=== PATIENT | male | born 1940 | race Caucasian/White ===

== ENCOUNTER 2025-05-04 11:30 | Outpatient (AMB) | payer OTHER, SELFPAY ==
--- OUTSIDE RECORDS SUMMARY | 2025-05-03 14:00 | XMS_ITS | Encounter Summary ---
Author Organization [facility] Address [address] [place] [address] Care Team Providers Care Field Representative/Health Education Name Role Phone Aida Josh HOLLAND Primary Care Provider Reason for Visit * Reason Comments OMT Encounter Details Date Type Department Care Team (Late st Contact Info) Description 05/03/2025 2:00 PM EDT Office Visit Internal Medicine - [place] [address] [place] [address] Josh Parra DO [address] [place] [address] Primary hypertension (Primary Dx); Acquired hypothyroidism; Mixed hyperlipidemia; Low back pain with right-sided sciatica, unspecified back pain laterality, unspecified chronicity; Head region somatic dysfunction; Cervical (neck) region somatic dysfunction; Thoracic region somatic dysfunction; Lumbar region somatic dysfunction; Sacral region somatic dysfunction; Pelvic region somatic dysfunction; Lower limb region somatic dysfunction; Upper limb region somatic dysfunction Social History Tobacco Use Types Packs/Day Years Used Date Smoking Tobacco: Former Cigarettes Q uit: 10/12/1971 Smokeless Tobacco: Never Alcohol Use Standard Drinks/Week Comments Yes 2 (1 standard drink = 0.6 oz pur e alcohol) Sex and Gender Information Value Date Recorded Sex Assigned at Not on file Legal Sex Male 2:11 PM EST Gender Identity Not on file Sexual Orientation Not on file documented as of this encounter Last Filed Vital Signs Vital Sign Reading Time Taken Comments Blood Pressure 122/65 05/03/2025 4:54 PM EDT Pulse 86 05/03/2025 2:02 PM EDT Temperature 37.1 C (98.8 F) 05/03/2025 2:02 PM EDT Respiratory Rate - - Oxygen Saturation 97% 05/03/2025 2:02 PM EDT Inhaled Oxygen Concentration - - Weight 78.3 kg (172 lb 9.6 oz) 05/03/2025 2:02 P M EDT Height 170.2 cm (5' 7 ) 05/03/2025 2:02 PM EDT Body Mass Index 27.03 05/03/2025 2:02 PM EDT documented in this encounter Progress Notes * Josh Parra, - 05/03/2025 2:00 PM EDTAssociated Order(s): Osteopathic Manipulative Treatment Post-Procedure Diagnose(s): Cervical (neck) region somatic dysfunction; Lower limb region somatic dysfunction; Lumbar region somatic dysfunction; Sacral region somatic dysfunction; Head region somatic dysfunction; Pelvic region somatic dysfunction; Thoracic region somatic dysfunction; Upper limb region somatic dysfunction History of present Illness: Mikal Chavez is 85 y.o. male who presented today for Chief Complaint Patient presents with OMT 84-year-old male with history of frontal temporal dementia, severe aortic stenosis, essential hypertension, hyperlipidemia, with recent TAVR and pacemaker procedure completed chronic heart failure with preserved ejection fraction, hyponatremia presents to the office for follow-up. Of note patient'swife is present. Patient's notes patient tolerated procedure well. Of note patient has been having reoccurrence of low back pain and would like to be seen by chiropractor. Of note patient had TENS unit placed previously for chronic back pain by chiropractor. Pt notes he has been having bilateral hip and back pain and would like to continue with osteopathic interventions. Review of Systems: Review of Systems Constitutional: Negative for fatigue and fever. HENT: Negative for postnasal drip and sinus pressure. Respiratory: Negative for cough and shortness of breath. Cardiovascular: Negative for chest pain. Gastrointestinal: Negative for abdominal pain, constipation, diarrhea, nausea and vomiting. Genitourinary: Negative for dysuria. Musculoskeletal: Positive for arthralgias, back pain and myalgias. Neurological: Negative for dizziness. Psychiatric/Behavioral: The patient is not nervous/anxious. Physical Exam: Physical Exam Constitutional: General: He is not in acute distress. Appearance: Normal appearance. HENT: Head: Normocephalic and atraumatic. Cardiovascular: Rate and Rhythm: Normal rate. Rhythm irregular. Pulses: Normal pulses. Heart sounds: Murmur heard. Pulmonary: Effort: Pulmonary effort is normal. No respiratory distress. Breath sounds: Normal breath sounds. Musculoskeletal: General: Normal range of motion. Cervical back: Normal range of motion and neck supple. Right lower leg: No edema. Lymphadenopathy: Cervical: No cervical adenopathy. Neurological: Mental Status: He is alert. Allergies: No Known Allergies Vitals: 05/03/25 1402 05/03/25 1654 BP: (!) 167/68 122/65 BP Location: Right arm Patient Position: Sitting BP Cuff Size: Adult Pulse: 86 Temp: 37.1 ??C (98.8 ??F) TempSrc: Temporal SpO2: 97% Weight: 78.3 kg (172 lb 9.6 oz) Height: 1.702 m (67 ) Past Medical History: Past Medical History: Diagnosis Date Acquired hypothyroidism 11/07/2017 DX:Acquired hypothyroidism Acute bronchitis due to other specified organisms 11/19/2016 DX:Acute bronchitis due to other specified organisms Aortic valve disorder 11/07/2017 DX:Aortic valve disorder Bilateral carotid artery disease (CMS/HCC V24) 11/07/2017 DX:Bilateral carotid artery disease (HCC) Coronary arteriosclerosis DX:Coronary arteriosclerosis Coronary artery disease involving [place] coronary artery of [place] heart without angina pectoris DX:Coronary artery disease involving [place] coronary artery of [place] heart without angina pectoris Disease of thyroid gland DX:Disease of thyroid gland High cholesterol DX:High cholesterol Hx of CABG 11/07/2017 DX:Hx of CABG Hypertension DX:Hypertension Hypertensive heart disease without heart failure 11/07/2017 DX:Hypertensive heart disease without heart failure Mixed hyperlipidemia 11/07/2017 DX:Mixed hyperlipidemia Non-rheumatic mitral regurgitation 11/07/2017 DX:Non-rheumatic mitral regurgitation Nonrheumatic aortic valve stenosis 11/07/2017 DX:Nonrheumatic aortic valve stenosis Obesity (BMI 30-39.9) 11/07/2017 DX:Obesity (BMI 30-39.9) RBBB 11/07/2017 DX:RBBB Syncope and collapse 07/05/2018 DX:Syncope and collapse Visual impairment DX:Visual impairment;COMMENT:wears glasses Past Surgical History: Past Surgical History: Procedure Laterality Date APPENDECTOMY PROCEDURE:APPENDECTOMY COLONOSCOPY PROCEDURE:COLONOSCOPY CORONARY ARTERY BYPASS GRAFT PROCEDURE:CORONARY ARTERY BYPASS GRAFT HERNIA REPAIR PROCEDURE:HERNIA REPAIR THROMBOENDARTERECTOMY Left 09/14/2020 PROCEDURE:THROMBOENDARTERECTOMY;COMMENT:Procedure: LEFT CAROTID ENDARTERECTOMY; Surgeon: Macho Calero MD; Location: [facility]; Service: Vascular; Laterality: Left; TONSILLECTOMY PROCEDURE:TONSILLECTOMY UPPER GASTROINTESTINAL ENDOSCOPY PROCEDURE:UPPER GASTROINTESTINAL ENDOSCOPY Social History: Social History Tobacco Use Smoking Status Former Current packs/day: 0.00 Types: Cigarettes Quit date: 10/12/1971 Years since quittin.5 Smokeless Tobacco Never Family History: Family History Problem Relation Name Age of Onset COPD Mother Coronary artery disease Father Hyperlipidemia Father Heart disease Father Diabetes Neg Hx Cancer Neg Hx Home Medications: Current Outpatient Medications Medication Sig Dispense Refill amoxicillin (AMOXIL) 500 mg capsule Take 1 capsule (500 mg total) by mouth. ascorbic acid (VITAMIN C) 1,000 mg tablet Take 1 tablet (1,000 mg total) by mouth every evening. aspirin 81 mg EC tablet Take 1 tablet (81 mg total) by mouth every evening. atorvastatin (LIPITOR) 40 mg tablet TAKE 1 TABLET(40 MG) BY MOUTH DAILY calcium carbonate (CALTRATE 600 ORAL) Take 1 tablet by mouth 2 (two) times a day. Per pt. gabapentin (NEURONTIN) 300 mg capsule Take 2 capsules (600 mg total) by mouth 3 (three) times a day. 540 each 1 irbesartan-hydroCHLOROthiazide (AVALIDE) 150-12.5 mg per tablet TAKE 1 TABLET BY MOUTH DAILY levothyroxine (SYNTHROID, LEVOTHROID) 75 mcg tablet Take 1 tablet (75 mcg total) by mouth 1 (one) time each day before breakfast. TAKE 1 TABLET(75 MCG) BY MOUTH DAILY 90 each 1 lidocaine (LIDODERM) 5 % patch Apply 1 patch topically 1 (one) time each day. memantine (NAMENDA) 10 mg tablet Take 1 tablet (10 mg total) by mouth 2 (two) times a day. multivit-min/ferrous fumarate (MULTI VITAMIN ORAL) Take 1 tablet by mouth daily. nebivoloL (BYSTOLIC) 10 mg tablet Take 1 tablet (10 mg total) by mouth 1 (one) time each day. pregabalin (LYRICA) 50 mg capsule Take 1 capsule (50 mg total) by mouth 2 (two) times a day. tiZANidine (ZANAFLEX) 4 mg tablet Take 1 tablet (4 mg total) by mouth 3 (three) times a day if needed for muscle spasms for up to 90 doses. 90 tablet 0 No current facility-administered medications for this visit. Results: No results found for: CBCDIF , THYROID , QC , PSA , BMP , PT , INR , HGBA1C Assessment and Plan: Problem List Items Addressed This Visit Acquired hypothyroidism Hypertension - Primary Other Visit Diagnoses Mixed hyperlipidemia Low back pain with right-sided sciatica, unspecified back pain laterality, unspecified chronicity Head region somatic dysfunction Cervical (neck) region somatic dysfunction Thoracic region somatic dysfunction Lumbar region somatic dysfunction Sacral region somatic dysfunction Pelvic region somatic dysfunction Lower limb region somatic dysfunction Upper limb region somatic dysfunction MDM Number of Diagnoses or Management Options Diagnosis management comments: Essential hypertension-established. Patient goal BP less than 140/90. Patient continue blood pressure medications including irbesartan/hydrochlorothiazide/Nebivolol. Hyperlipidemia-established. Patient continue atorvastatin 40 mg daily. Acquired hypothyroidism-established. Patient continue levothyroxine 75 mcg daily. Chronic low back pain with right-sided sciatica-established. Patient gerard a good candidate for osteopathic manipulation. Patient has also been tolerating Lyrica/tizanidine. Will continue patient on medications appropriately. Will utilize technique such as muscle energy, counterstrain, myofascial release, osteopathic percussion therapy, BLT techniques to treat patient somatic dysfunctions. Procedure: OMT Patient is a good candidate for OMT. Discussed goals of treatment. Patient expressed understanding. Consent was obtained from the patient for OMT evaluation and treatment. Based on today's physical exam, OMT was administered to the regions of somatic dysfunction listed in the osteopathic structural exam. OMT may or may not include techniques including MFR, BLT, FPR, CS, ME, lymphatic drainage, fascial distortion, fascial strains and gentle articulation. The techniques chosen for the patient were based on the indications noted in OSE and also adjusted to patient's tolerance. The regions treated were chosen based on the chief complaint and/or associated health conditions. Both postural and neurologic factors that could cause the symptoms were considered in the selection of these regions. Patient tolerated the treatment well without complication. Osteopathic Manipulative Treatment Date/Time: 05/03/2025 5:02 PM Performed by: Josh Parra DO Authorized by: Josh Parra DO Informed Consent: Site: Neck, Back Laterality: Bilateral Relevant images/test results available and reviewed: yes Health status cleared: Yes Procedure/treatment, purpose, treatment alternatives, risks/potential complications and benefits explained: yes Patient questions answered: yes Patient agrees, verbalizes understanding, and wants to proceed: yes Consent given by: Patient Informed consent discussion completed by Physician/KYLEIGH with patient: Verbal Pre-procedure timeout performed: yes Procedure: Based on patient's verbal history and today's physical exam findings, osteopathic manipulative treatment is indicated Technique(s) used: balanced ligamentous tension, balanced membranous tension, muscle energy technique, myofascial release technique and soft tissue technique Regions Accessed: head, cervical, thoracic, lumbar, sacral, pelvic, lower extremities and upper extremities Head findings: Suboccipital muscle hypertonicity Cervical findings: C2 ERrSr, C4 ERrSr, C5 ERlSl, C7 FRrSr Thoracic findings: T1 FRrSr, T3 FRlSl, T4 FRlSL, T7 FRrSr, Paraspinal muscle hypertonicity Lumbar findings: L2 ERrSr, L4 ERlSl, Paraspinal muscle hypertonicity Sacral findings: L/L Forward sacral torsion Pelvic findings: Left posteriorly rotatated innominate Lower extremities findings: Right piriformis tenderpoint Upper extremities findings: Upper trapezius and supraspinatus tenderpoint Total number of regions: 8 Post-procedure: Procedure was tolerated well and no complication were noted Patient instructed to: continue current medications and treat increased pain with ice and/or heat intermittently Patient is to return: For follow up Return in: 1 month Stretches [employer] and provided education on various stretches. Recommended and educated pts on stretching neck, back and other associated hypertonic muscles that are exacerbating pt's MSK symptoms. Advised ptsto stretch after warm shower or heat pack treatment to affected areas to prevent further muscle injury. Recommend pt to stretch 3x a day for 10-15 seconds or as pt tolerates. Return to office in: F/U in 1M OMT treatment of low back pain Josh Parra DO [facility] This document was created using a voice-recognition software. While I try to document as accuratelyas possible, however there maybe occasional typos and errors that maybe present in the note due to limitations of the voice- recognition software. I have applied the code G2211 to this patient???s visit as the primary care provider dealing with the following conditions but not limited to (HTN, HLD, Hypothyroidism, Chronic back pain, Frontal Temporal dementia) leading to the extensive work up, and management associated with the medical care ofthis patient. This patient???s serious and complex medical conditions also required additional comprehensive management/workup and coordination of care through my office. I have also reviewed all necessary information that pertains to the management of this patient including, but not limited to imaging, laboratory work, specialist's recommendation/treatment plan with considerations of patient's chronic conditions and current medications for final approval. documented in this encounter Plan of Treatment Upcoming Encounters Date Type Department Care Team (Late st Contact Info) Description 05/17/2025 1:30 PM EDT Office Visit Internal Medicine - [place] [address] [place] [address] Josh Parra DO [address] [place] [address] 06/21/2025 2:00 PM EDT Office Visit Internal Medicine - [place] [address] [place] [address] Josh Parra DO [address] [place] [address] 08/21/2025 2:30 PM EST Office Visit Internal Medicine - [place] [address] [place] [address] Josh Parra DO [address] [place] [address] documented as of this encounter Procedures Procedure Name Priority Date/Time Associated Diagnosis Comments [place] OMT 7-8 BODY REGIONS Routine 05/03/2025 5:02 PM EDT Head region somatic dysfunction Cervical (neck) region somatic dysfunction Thoracic region somatic dysfunction Lumbar region somatic dysfunction Sacral region somatic dysfunction Pelvic region somatic dysfunction Lower limb region somatic dysfunction Upper limb region somatic dysfunction documented in this encounter Results * WI OMT 7-8 BODY REGIONS (05/03/2025 5:02 PM EDT) Josh Miranda DO - 05/03/2025 5:02 PM EDT Josh Parra DO 05/03/2025 5:05 PM Osteopathic Manipulative Treatment Date/Time: 05/03/2025 5:02 PM Performed by: Josh Parra DO Authorized by: Josh Parra DO Informed Consent: Site: Neck, Back Laterality: Bilateral Relevant images/test results available and reviewed: yes Health status cleared: Yes Procedure/treatment, purpose, treatment alternatives, risks/potential complications and benefits explained: yes Patient questions answered: yes Patient agrees, verbalizes understanding, and wants to proceed: yes Consent given by: Patient Informed consent discussion completed by Physician/KYLEIGH with patient: Verbal Pre-procedure timeout performed: yes Procedure: Based on patient's verbal history and today's physical exam findings, osteopathic manipulative treatment is indicated Technique(s) used: balanced ligamentous tension, balanced membranous tension, muscle energy technique, myofascial release technique and soft tissue technique Regions Accessed: head, cervical, thoracic, lumbar, sacral, pelvic, lower extremities and upper extremities Head findings: Suboccipital muscle hypertonicity Cervical findings: C2 ERrSr, C4 ERrSr, C5 ERlSl, C7 FRrSr Thoracic findings: T1 FRrSr, T3 FRlSl, T4 FRlSL, T7 FRrSr, Paraspinal muscle hypertonicity Lumbar findings: L2 ERrSr, L4 ERlSl, Paraspinal muscle hypertonicity Sacral findings: L/L Forward sacral torsion Pelvic findings: Left posteriorly rotatated innominate Lower extremities findings: Right piriformis tenderpoint Upper extremities findings: Upper trapezius and supraspinatus tenderpoint Total number of regions: 8 Post-procedure: Procedure was tolerated well and no complication were noted Patient instructed to: continue current medications and treat increased pain with ice and/or heat intermittently Patient is to return: For follow up Return in: 1 month Josh Parra DO IN CLINIC/BEDSIDE ORDERABLES Fin al Result documented in this encounter Visit Diagnoses Diagnosis Primary hypertension- Primary Unspecified essential hypertension Acquired hypothyroidism Unspecified hypothyroidism Mixed hyperlipidemia Low back pain with right-sided sciatica, unspecified back pain laterality, unspecified chronicity Head region somatic dysfunction Nonallopathic lesion of head region, not elsewhere classified Cervical (neck) region somatic dysfunction Nonallopathic lesion of cervical region, not elsewhere classified Thoracic region somatic dysfunction Nonallopathic lesion of thoracic region, not elsewhere classified Lumbar region somatic dysfunction Nonallopathic lesion of lumbar region, not elsewhere classified Sacral region somatic dysfunction Nonallopathic lesion of sacral region, not elsewhere classified Pelvic region somatic dysfunction Nonallopathic lesion of pelvic region, not elsewhere classified Lower limb region somatic dysfunction Nonallopathic lesion of lower extremities, not elsewhere classified Upper limb region somatic dysfunction Nonallopathic lesion of upper extremities, not elsewhere classified documented in this encounter Additional Health Concerns Assessment Noted Time PHQ-9 Depression Total Score: 0 03/07/20 25 2:43 PM EDT documented as of this encounter Care Teams Field Representative/Health Education Relationship Specialty Start Date End Date Josh Parra DO [address] [place] [id number] PCP - General Family Medicine 07/31/22 documented as of this encounter
--- NOTE | 2025-05-04 12:01 | A.OFFVIS_ITS ---
Intake Visit Reasons: 3 mnts ftd Accompanied by: Spouse Allergies No Known Allergies Allergy (Verified 05/04/25 12:07) Medication List - Last Reconciled 05/04/25 by Ysabel Berrios CNP amlodipine 2.5 mg PO DAILY donepezil 5 mg PO BEDTIME furosemide 20 mg PO DAILY gabapentin 300 mg PO BID irbesartan-hydrochlorothiazide 300-12.5 mg 1 tab PO DAILY levothyroxine 75 mcg PO DAILY memantine 5 mg PO BID nebivolol 5 mg PO DAILY sertraline 25 mg PO DAILY HPI Comments Details: He was doing okay. Memory stable overall, but has trouble with speech and language. He says he feels good with medications. No medication side effects. Mood better with sertraline. He still gets stuck for words, which can make him frustrated at times. Sleep was okay. He was having some intermittent tremor, usually when eating dinner. No functional impairment. Working with chiropractor for sciatica. Walking with cane, no falls. He had valve replacement and pacemaker in 09/2024. He has been noted to have word finding difficulties, speech is altered and his fluency has diminished, he hesitates for words. He has only minor memory issues, misplacing things like his keys and phones but otherwise functions well and drives fine without getting lost. He has become slower to respond; sometimes it takes and 2 attempts to get him to do something. He gets emotional and cries frequently and easily. He feels stressed and anxious with crowds and has become more impatient and explodes more easily, but comes down fairly quickly and apologizes. For a few years he has had a minor tremor in his hands intermittently. His daughter feels that he doesn't smile as much. He has also had some right-sided sciatica pain which was relieved with an injection, but is left with some pain in the right knee area. He has had 3 bouts of Covid infection, the last one was in June 2023. He has a history of coronary artery disease and had two-vessel bypass in 1999 and a right carotid endarterectomy in 2019. [facility] Medical History (Updated 05/04/25 @ 12:05 by Ysabel Berrios CNP) Frontotemporal lobar degeneration Sciatica Review of Systems Const Denies chills, Denies daytime sleepiness, Denies difficulty sleeping, Denies fatigue, Denies fever(s), Denies frequent falls, Denies headache(s), Denies increased appetite, Denies poor appetite, Denies snoring, Denies weakness, Denies weight gain and Denies weight loss Eyes Denies loss of vision ENT Denies vertigo, Denies dizziness, Denies headache(s) and Denies neck pain Card Denies chest pain at rest, Denies chest pain with activity, Denies syncope, Denies leg edema, Denies palpitations, Denies dyspnea and Denies dyspnea on exertion Resp Denies cough, Denies dyspnea, Denies dyspnea on exertion and Denies snoring GI Denies abdominal pain, Denies constipation, Denies heartburn, Denies diarrhea and Denies nausea Reports urinary frequency, Denies urinary incontinence and Denies urinary urgency Musc Reports abnormal gait, Denies back pain, Denies myalgias, Denies arthralgias, Denies neck pain, Denies numbness and Denies tingling Neuro Reports abnormal gait, Denies vertigo, Denies dizziness, Denies syncope, Denies frequent falls, Denies headache(s), Denies lack of coordination, Denies loss of vision, Reports memory loss, Denies numbness, Denies Other visual disturbances, Denies restless legs, Denies seizure-like activity, Denies tingling, Denies paresthesias, Reports tremor(s) and Denies weakness Psych Reports anxiety, Reports depression, Denies auditory hallucinations, Reports memory loss and Denies visual hallucinations Endo Denies fatigue and Denies palpitations Physical Exam Const Other: General Appearance:? normal, in no acute distress. Heart:? S1, S2 normal, no murmurs. Lungs:? clear anteriorly and posteriorly. Musculoskeletal:? normal. Extremities:? no edema. Psych:? alert, cooperative with exam. Neuro Other: Abnormal Neurological Findings:?Walking with cane. Decreased speech fluency. Mental Status: alert Cranial Nerves: Pupils are equal, round, and reactive to light. External ocular muscles are intact. Visual dejesus are full, no ptosis. Face is symmetrical, no facial weakness or droop. Facial sensations are normal. Tongue protrudes in midline. Palate elevates symmetrically. Shoulder shrugging is normal Motor Examination: Normal muscle tone, bulk and strength. No atrophy or fasciculations. No drift of the extended upper extremities. DTR 2+. Plantars are flexor. Straight Leg Raisin degrees. Sensory Exam: Normal light touch, temperature, pinprick, vibration, and joint- position sensations. Rhomberg sign is absent. Coordination: No ataxia. No titubation. Edsfto-pd-hofi, razu-jexp-rzhs test, and rapid alternating movements were normal. Gait Exam: With cane. Cerebellar Signs: Fdgapy-jd-oohq and tehk-mk-jgqs is normal. No dysdiadochokinesia. Extrapyramidal System: No tremor, rigidity with normal facial expressions. No bradykinesia. No bradyphrenia. Normal arm swing and posture. No propulsion or retropulsion. Speech: Decreased fluency. Assessment & Plan Assessment & Plan (1) Frontotemporal lobar degeneration: Code(s): G31.09 - Other frontotemporal neurocognitive disorder; F02.80 - Dementia in other diseases classified elsewhere, unspecified severity, without behavioral disturbance, psychotic disturbance, mood disturbance, and anxiety Category: Medical Plan: Increase memantine 10mg 1 tablet twice a day Continue donepezil 5mg 1 tablet at bedtime Continue sertraline 25mg 1 tablet daily Medications: New memantine 10 mg PO BID 180 tabs 1RF 90 days Coding Level of Care Code Est Pt Level 4 (67065) Diagnoses Frontotemporal lobar degeneration G31.09; F02.80
--- OUTSIDE RECORDS SUMMARY | 2025-05-04 12:24 | XMS_ITS | Clinical Summary ---
Author Organization [facility] Address [address] [place] [address] Care Team Providers Care Quilt Stuffer Name Role Phone Josh Parra MD Primary Care Provider Unavailab le Allergies No known active allergies Medications Medication Sig Dispensed Refills Start Date End Date Status aspirin EC 81 MG tablet Take 1 tablet (81 mg total) by mouth every evening. 0 Active Multiple Vitamin (MULTI VITAMIN PO) Take 1 tablet by mouth daily. 0 Active Calcium Carbonate (CALTRATE 600 PO) Take 1 tablet by mouth 2 (two) times a day. Per pt. 0 Active Ascorbic Acid (VITAMIN C) 1000 MG tablet Take 1 tablet (1,000 mg total) by mouth every evening. 0 Active amLODIPine (NORVASC) tablet 5 mg TAKE 1 TABLET(5 MG) BY MOUTH DAILY 90 tablet 3 05/07/2020 Active irbesartan-hydroCHLOR Othiazide (AVALIDE) 150-12.5 MG per tablet TAKE 1 TABLET BY MOUTH DAILY 90 tablet 3 10/31/2020 Active atorvastatin (LIPITOR) tablet 40 mg TAKE 1 TABLET(40 MG) BY MOUTH DAILY 90 tablet 3 10/31/2020 Active nebivolol (BYSTOLIC) 5 MG tablet Take 1 tablet (5 mg total) by mouth daily. 0 09/10/2021 Active gabapentin (NEURONTIN) 300 MG capsule 0 02/25/2024 Active donepezil (ARICEPT) 5 MG tablet Take 1 tablet (5 mg total) by mouth every night at bedtime. 0 02/03/2024 Active amLODIPine (NORVASC) tablet 2.5 mg daily. Along with 5mg. Total 7.5mg 0 06/20/2024 Active levothyroxine (SYNTHROID) tablet 75 mcgIndications:Diseas e of thyroid gland TAKE 1 TABLET(75 MCG) BY MOUTH DAILY 90 tablet 3 07/05/2024 Active Active Problems Problem Noted Date Diagnosed Date Frontotemporal dementia 05/30/2024 Carotid stenosis, asymptomatic, left 09/14/2020 Asymptomatic stenosis of left carotid artery Syncope and collapse 07/05/2018 Hypothyroid 11/18/2017 Hx of CABG 11/07/2017 RBBB 11/07/2017 Nonrheumatic aortic valve stenosis 11/07/2017 Non-rheumatic mitral regurgitation 11/07/2017 Bilateral carotid artery disease 11/07/2017 Obesity (BMI 30-39.9) 11/07/2017 Acquired hypothyroidism 11/07/2017 Elevated PSA 11/19/2016 Acute bronchitis due to other specified organism s 11/19/2016 Hypertension Disease of thyroid gland High cholesterol Coronary artery disease invo lving torres martinez coronary artery of torres martinez heart without angina pectoris Resolved Problems Problem Noted Date Diagnosed Date Resolved Date Hypertension 11/18/2017 07/05/2020 Hypertensive heart disease w ithout heart failure 11/07/2017 07/05/2020 Mixed hyperlipidemia 11/07/2017 020 Immunizations Name Administration Dates Next Due Covid-19 (Pfizer 12+) Bivalent 07/31/2022 Covid-19 (Pfizer) Dilution Required 07/13,07/23/2021,11/28/2020,2020 Influenza Quad (Fluad) 0.5 m L >65Yrs (AIIV4) 08/24/2023,08/24/2021 Influenza Quad (High Dose Fl uzone) 0.7mL >65Yrs (HD-IIV4) 09/01/2022,07/27/2020 Influenza TIV (IM) (inactive) 11/12/2017 Influenza Trivalent (Fluad) 0.5mL (65 yrs &>) 07/11/2024,08/03/2019 Pneumococcal Conjugate PCV13 08/16/2019 Pneumococcal Conjugate PCV20 07/05/2024 Shingrix Vaccine (Zoster Recombinant) 04/06/2019 ,01/28/2019 Family History Medical History Relation Name Comments Coronary artery disease Father Heart disease Father Hyperlipidemia Father COPD Mother Cancer Neg Hx Diabetes Neg Hx Relation Name Status Comments Father Maternal Grandfather Maternal Grandmother Mother Paternal Grandfather Paternal Grandmother Social History Tobacco Use Types Packs/Day Years Used Date Smoking Tobacco: Former Cigarettes 1 10 Q uit: 1972 Smokeless Tobacco: Never Tobacco Cessation:Counseling Given: Not Answered Alcohol Use Standard Drinks/Week Comments Yes 2 (1 standard drink = 0.6 oz pur e alcohol) Occasionally Sex and Gender Information Value Date Recorded Sex Assigned at Male 09/11/2020 3:01 PM EST Gender Identity Not on file Sexual Orientation Not on file Job Start Date Occupation Industry Not on file Not on file Not on file Last Filed Vital Signs Vital Sign Reading Time Taken Comments Blood Pressure 140/68 07/05/2024 9:59 AM EDT Pulse 55 07/05/2024 9:28 AM EDT Temperature 36.1 C (97 F) 07/11/2024 9:42 AM EDT Respiratory Rate 18 03/04/2024 1:58 PM EDT Oxygen Saturation 99% 07/05/2024 9:28 AM EDT Inhaled Oxygen Concentration - - Weight 83.4 kg (183 lb 12.8 oz) 07/05/2024 9:28 AM EDT Height 172.7 cm (5' 8 ) 05/30/2024 2:44 PM EDT Body Mass Index 27.95 05/30/2024 2:44 PM EDT Plan of Treatment Health Maintenance Due Date Last Done Comments DTap / Tdap / Td (1 - Tdap) 01/26/1960 RSV Adult > 60+ Yrs or (1 - 1-dose 75+ series) 01/26/2016 COVID-19 Vaccine ( season) 2024 07/31/2022, 07/31/2022, 07/23/2021, Additional history exists Depression Screening 03/04/2025 03/04/2024, 03/04/2024, 03/02/2023, Additional history exists Fall Risk Assessment 03/04/2025 03/04/2024, 03/04/2024, 03/02/2023, Additional history exists Preventative Health Evaluation 03/04/2025 03/04/2024, 03/02/2023, 12/24/2021, Additional history exists Influenza Vaccine (#1) 2025 4, 08/24/2023, 09/01/2022, Additional history exists BMI Counseling 07/05/2025 07/05/2024, 02/10, 10/02/2023, Additional history exists Shingrix-Zoster Vaccine Completed 04/06/2019, 01/28 Pneumococcal Vaccine Completed 07/05/2024, 08/16/20 19 Hepatitis B Vaccines Aged Out No long er eligible based on patient's age to complete this topic RSV Ped < 20 months Aged Out No longe r eligible based on patient's age to complete this topic Medical Devices Implanted Type [employer] Device Identifier Shelf Expiration Date Model / Serial / Lot Patch Xenosure Thk.45mm 8x.8cm Bovine Pericardium Vascular - [id number] - [id number] Implanted:Qty: 1 on 09/14/2020 by Macho Calero MD at [facility] [place] Left: Carotid TUZIK BIPIN 11/08/2025 0.8P8 / / [id number] Explanted Type [employer] Device Identifier Shelf Expiration Date Model / Serial / Lot Cellulose Surgicel 14x2in Absorbable Hemostatic Agent - [id number] - [id number] Explanted:Qty: 1 on 09/14/2020 by Macho Calero MD at [facility] [place] and [facility] Hemostatic Agent Left: Neck [employer] 05/11/2021 195 / / [id number] Advance Directives For more information, please contact: [phone] Latest Code Status on File Code Status Date Activated Date Inactivated Comments Full Code 09/14/2020 9:31 AM 09/15/2020 7:00 PM This code status was ascertained in the following way: discussion with patient . Care Teams Quilt Stuffer Relationship Specialty Start Date End Date Josh Parra MD PCP - General Family Medicine 07/31/22
--- OUTSIDE RECORDS SUMMARY | 2025-05-04 12:24 | XMS_ITS | Data Portability ---
Author Organization [place] [facility]hil Wood, [facility] Address [address] [place] [address] Assessment Encounter Date Assessment Date Assessment LastModified by Organization Details LastModified Time 03/14/2025 03/14/2025 BPH-stable as per AUA sheet-elevate d PSA reassess with PSA now-RTO 1 year gtrono Not available 03/14/2025 11:02:46 Plan of Treatment Reminders Order Date Submit Date Provider Last Modified By Organization Details Last Modified Time Details Appointments OFFICE VISIT 15 2025 10:30A M Dr. Copeland Not available Not available Not available Lab unlisted lab - PSA 2024 025 [facility], [address] [place] [address], [id number], 04/17/2025 14:30:49 urinalys is, dipstick , auto 2024 025 [facility], [facility] [address] [place], [address], [place], [address], 03/14/2025 10:58:54 [facility]ini ne, [facility] [place], [address], [address], 03/14/2025 10:58:54 Referral None recorded . Procedures None recorded . Surgeries None recorded . Imaging None recorded . Medication Orders None recorded . Patient TargetsNo targets recorded. Patient InstructionsNo instructions recorded. Reason for Referral None Reported. Results Created Date Observation Date Name Description Value Unit Range Abnormal Flag Note LastModifiedBy Organization Detail LastModifiedTime 03/14/20 25 03/14/2025 urina lysis , dipst ick, auto Leukocytes Negati ve Not Available [address], [place], [address], 03/14/2025 10:48:45 03/14/20 25 03/14/2025 urina lysis , dipst ick, auto Nitrite negati ve Not Available [address], [place], [address], 03/14/2025 10:48:45 03/14/20 25 03/14/2025 urina lysis , dipst ick, auto Protein Negati ve Not Available [address], [place], [address], 03/14/2025 10:48:45 03/14/20 25 03/14/2025 urina lysis , dipst ick, auto pH 5.5 Not Available [place] [address], [place], [address], 03/14/2025 10:48:45 03/14/20 25 03/14/2025 urina lysis , dipst ick, auto Blood Non-He molyze d: Trace Not Available [address], [place], [address], 03/14/2025 10:48:45 03/14/20 25 03/14/2025 urina lysis , dipst ick, auto Specific Corona 1.020 Not Available [facility] [address] [place] [address], [place], [address], 03/14/2025 10:48:45 03/14/20 25 03/14/2025 urina lysis , dipst ick, auto Ketone Trace Not Available [facility] [address] [place] [address], [place], [address], 03/14/2025 10:48:45 03/14/20 25 03/14/2025 urina lysis , dipst ick, auto Glucose Negati ve Not Available [facility] [address] [place] [address], [place], [address], 03/14/2025 10:48:45 03/14/20 25 03/14/2025 creat inine , urine creatinine 200 mg Not Available [facility] [address] [place] [address], [place], [address], 03/14/2025 10:48:45 Result Notes None recorded. Problems Name Problem SNOMED Code Status Onset Date Resolution Date Notes Provider Name and Address Organization Details Recorded Time Hyperchol esterolem ia 74635426 Active 2016 High cholester ol Not Available [facility] 4 07:32:10 Prostate specific antigen above reference range 008511229 Active 2016 Elevated PSA G Julio Copeland MD [address] [place], [address] , [facility] - [facility] 5 10:58:45 Hypertens wilmer disorder 35293482 Active 2016 Hypertens ion Not Available [facility] 4 07:32:11 Disorder of thyroid gland 21212216 Active 2016 Disease of thyroid gland Not Available [facility] 4 07:32:12 Acute infective bronchiti s 399957759 Active 2016 Acute bronchiti s due to other specified organisms Not Available [facility] 4 07:32:12 Disorder of carotid artery 895980141 Active 2017 Bilateral carotid artery disease Not Available [facility] 4 07:32:08 History of coronary artery bypass grafting 696253014 Active 2017 Hx of CABG Not Available [facility] 4 07:32:08 Non-rheum atic mitral regurgita tion 423506107 Active 2017 Non-rheum atic mitral regurgita tion Not Available [facility] 4 07:32:09 Acquired hypothyro idism 897151989 Active 2017 Acquired hypothyro idism Not Available [facility] 4 07:32:09 Right bundle branch block 33863994 Active 2017 RBBB Not Available [facility] 4 07:32:09 Coronary arteriosc lerosis 84525204 Active 2017 Coronary artery disease involving [place] coronary artery of [place] heart without angina pectoris Not Available [facility] 4 07:32:11 Body mass index 30+ - obesity 361270615 Active 2017 Obesity (BMI 30-39.9) Not Available [facility] 4 07:32:11 Aortic stenosis, non-rheum atic 996911957 Active 2017 Nonrheuma tic aortic valve stenosis Not Available [facility] 4 07:32:11 Hypothyro idism 20100320 Active 2017 Hypothyro id Not Available [facility] 4 07:32:12 Syncope and collapse 257429173 Active 2017 Syncope and collapse Not Available [facility] 4 07:32:10 Left carotid artery stenosis 25042254496 9103 Active 2019 Asymptoma tic stenosis of left carotid artery Ca rotid stenosis, asymptoma tic, left Not Available [facility] 4 07:32:09 Benign prostatic hyperplas ia with outflow obstructi on 283402403 Active 2024 Millie Copeland MD [address] [place], [address] , [facility] 5 10:58:40 Problem Notes None recorded. Medical Equipment None Reported. Medications Name Sig Start Date Stop Date Status Note LastModified by Organization Details LastModified Time atorvastati n 40 mg tablet TAKE 1 TABLET(40 MG) BY MOUTH DAILY 2020 active Not Available Not Available Not Avai lable ascorbic acid (vitamin C) 1,000 mg tablet Take 1 tablet (1,000 mg total) by mouth every evening. active Not Available Not Available No t Available donepezil 5 mg tablet Take 1 tablet (5 mg total) by mouth every night at bedtime. 2023 active Not Available Not Available Not Avai lable irbesartan 150 mg-hydrochl orothiazide 12.5 mg tablet TAKE 1 TABLET BY MOUTH DAILY 2020 active Not Available Not Available Not Avai lable amlodipine 5 mg tablet TAKE 1 TABLET(5 MG) BY MOUTH DAILY 2019 active Not Available Not Available Not Avai lable aspirin 81 mg tablet,didi yed release Take 1 tablet (81 mg total) by mouth every evening. active Not Available Not Available No t Available sildenafil 100 mg tablet Take 1 tablet (100 mg total) by mouth as needed for erectile dysfuncti on. 2023 active Not Available Not Available Not Avai lable levothyroxi ne 75 mcg tablet TAKE 1 TABLET(75 MCG) BY MOUTH DAILY 2023 active Not Available Not Available Not Avai lable alprazolam 0.5 mg tablet Take 1 tablet (0.5 mg total) by mouth as needed for anxiety (Take 30 minutes before MRI). 2022 active Not Available Not Available Not Avai lable Kenalog 10 mg/mL suspension for injection Inject 1 mL (10 mg total) into the skin. 12/18 completed Not Available Not Available Not Available gabapentin 300 mg capsule 2023 active Not Available Not Available Not Avai lable nebivolol 5 mg tablet Take 1 tablet (5 mg total) by mouth daily. 2020 active Not Available Not Available Not Avai lable Vitals None Recorded Social History None recorded. Functional Status None recorded. Mental Status None recorded. Family History Nothing Reported. Medical History No medical history recorded. Immunizations Vaccine Type Date Status Note Provider Nam e and Address Organization Details Recorded Time Influenza, high-dose, quadrivalent, PF 0 completed Not Available [facility] 09/15/2024 13:39:13 Pneumococcal conjugate PCV 13 9 completed Not Available [facility] 09/15/2024 13:39:13 Influenza, adjuvanted, trivalent, PF 9 completed Not Available [facility] 09/15/2024 13:39:13 COVID-19, mRNA, LNP-S, PF, 30 mcg/0.3 mL dose 1 completed Not Available [facility] 09/15/2024 13:39:13 COVID-19, mRNA, LNP-S, PF, 30 mcg/0.3 mL dose 1 completed Not Available [facility] 09/15/2024 13:39:14 COVID-19, mRNA, LNP-S, PF, 30 mcg/0.3 mL dose 1 completed Not Available [facility] 09/15/2024 13:39:14 zoster recombinant 9 completed Not Available [facility] 09/15/2024 13:39:14 Influenza, adjuvanted, quadrivalent, PF 1 completed Not Available [facility] 09/15/2024 13:39:14 Influenza, split virus, trivalent, PF 8 completed Not Available [facility] 09/15/2024 13:39:14 zoster recombinant 9 completed Not Available [facility] 09/15/2024 13:39:14 Influenza, high-dose, quadrivalent, PF 2 completed Not Available [facility] 09/15/2024 13:39:15 COVID-19, mRNA, LNP-S, bivalent, PF, 30 mcg/0.3 mL dose 2 completed Not Available [facility] 09/15/2024 13:39:15 COVID-19, mRNA, LNP-S, PF, 30 mcg/0.3 mL dose 2 completed Not Available [facility] 09/15/2024 13:39:15 Influenza, adjuvanted, quadrivalent, PF 3 completed Not Available [facility] 09/15/2024 13:39:16 Past Encounters Encounter ID Performer Location Encounter Start Date Encounter Closed Date Diagnosis/Indication Diagnosis SNOMED-CT Code Diagnosis ICD10 Code Diagnosis Note [id number] Julio Copeland MD [facility] [address] [place] [address] [place] [address] 03/14/2025 10:38:40 03/14/2025 11:05:59 Benign prostatic hyperplasia with outflow obstruction 006884096 N40.1 N13.8 Prostate s pecific antigen above reference range 764760252 R97.20 Health Concerns Section Related Observation LastModified by Organization Detai ls LastModified Time None Recorded Concern Status LastModified by Organization Details LastModified Time None Recorded Advance Directives Directive None Recorded Payers Insurance Date Sequence Insurance Name Policy Number Policy Mart Covered Member ID Mart Member ID Guarantor Name 03/21/2025 1 [employer] (MEDICARE REPLACEMENT/ ADVANTAGE - PPO) [id number] Mikal Chavez [id number] Mikal Chavez Notes Date Note Type Note Provider Name and Address Organization Details Recorded Time 03/14/2025 text/html Mikal Chavez is a 85 y.o. male here today for follow-up of BPH/increased PSA. No hematuria or dysuria. AUA symptom score last year was 8 with a PVR 4 cc G Julio Copeland MD [address] [place], [address], [facility] - [facility] 03/14/2025 11:03:05
--- OUTSIDE RECORDS SUMMARY | 2025-05-04 12:24 | XMS_ITS ---
Author Name [facility] Organization Unknown Results Test Name/Text Value Interpretation Date Range Source Creat SerPl-mCnc 1.1 mg/dL Normal 09/30/2024 0.5 - 1.3 HH CCT Glucose SerPl-mCnc 90.0 mg/dL Normal 09/30/2024 65 - 99 HHCCT BUN SerPl-mCnc 14.0 mg/dL Normal 09/30/2024 8 - [address] Sodium SerPl-sCnc 141.0 mmol/L Normal 09/30/2024 136 - 14 5 HHCCT CO2 SerPl-sCnc 26.0 mmol/L Normal 09/30/2024 22 - 33 HH CCT Anion Gap Bld-sCnc 11.0 Normal 09/30/2024 7 - 17 HHCCT Calcium SerPl-mCnc 9.0 mg/dL Normal 09/30/2024 8.7 - 10.5 HHCCT BUN/Creat SerPl 13.0 Ratio Normal 09/30/2024 10 - 25 HH CCT Chloride SerPl-sCnc 104.0 mmol/L Normal 09/30/2024 98 - 1 07 HHCCT GFR/BSA.pred SerPlBld [id number] 67.0 Normal 09/30/2024 59 - HHCCT Potassium SerPl-sCnc 4.1 mmol/L Normal 09/30/2024 3.4 - 5 .3 HHCCT Magnesium SerPl-mCnc 2.0 mg/dL Normal 09/30/2024 1.6 - 2. 7 HHCCT MCHC RBC Auto-mCnc 33.0 g/dL Normal 09/30/2024 30 - 36 HHCCT RBC num Bld Auto 3.73 Mil/uL Below low normal 09/30/2024 4.5 - 6.2 HHCCT RDW RBC Auto-Rto 13.3 % Normal 09/30/2024 11.5 - 14.5 HHCCT MCV RBC Auto 95.0 fL Normal 09/30/2024 80 - 100 HHCCT Hct VFr Bld Auto 35.5 % Below low normal 09/30/2024 39 - 54 HHCCT Hgb Bld-mCnc 11.7 g/dL Below low normal 09/30/2024 13 - 17.7 HHCCT MCH RBC Qn Auto 31.4 pg Above high normal 09/30/2024 27 - 31 HHCCT Platelet num Bld Auto 140.0 Thou/uL Below low normal 09/30/2024 150 - 450 HHCCT PMV Bld Auto 10.4 fL Normal 09/30/2024 7.5 - 12.5 HHCCT WBC num Bld Auto 8.7 Thou/uL Normal 09/30/2024 4 - 11 HHCCT Folate SerPl-mCnc >20.0 ng/mL Normal 09/29/2024 7.2 - HHCCT TIBC SerPl-mCnc 181.0 ug/dL Normal 09/29/2024 100 - 400 H HCCT Iron SerPl-mCnc 19.0 ug/dL Below low normal 09/29/2024 53 - 167 HHCCT Iron Satn MFr SerPl 10.0 % Below low normal 09/29/2024 20 - 50 HHCCT UIBC SerPl-mCnc 162.0 ug/dL Normal 09/29/2024 112 - 346 H HCCT BUN SerPl-mCnc 12.0 mg/dL Normal 09/29/2024 8 - [address] Calcium SerPl-mCnc 8.7 mg/dL Normal 09/29/2024 8.7 - 10.5 HHCCT Anion Gap Bld-sCnc 9.0 Normal 09/29/2024 7 - 17 HHCCT Creat SerPl-mCnc 0.9 mg/dL Normal 09/29/2024 0.5 - 1.3 HH CCT Sodium SerPl-sCnc 141.0 mmol/L Normal 09/29/2024 136 - 14 5 HHCCT Glucose SerPl-mCnc 102.0 mg/dL Above high normal 09/29/2024 65 - 99 HHCCT Potassium SerPl-sCnc 3.6 mmol/L Normal 09/29/2024 3.4 - 5 .3 HHCCT GFR/BSA.pred SerPlBld [id number] 85.0 Normal 09/29/2024 59 - HHCCT BUN/Creat SerPl 13.0 Ratio Normal 09/29/2024 10 - 25 HH CCT Chloride SerPl-sCnc 106.0 mmol/L Normal 09/29/2024 98 - 1 07 HHCCT CO2 SerPl-sCnc 26.0 mmol/L Normal 09/29/2024 22 - 33 HH CCT Vit B12 SerPl-mCnc 403.0 pg/mL Normal 09/29/2024 243 - 89 4 HHCCT TSH SerPl DL<=0.005 mIU/L-aCnc 2.49 mIU/L Normal 09/29/2024 0.27 - 4.2 HHCCT Magnesium SerPl-mCnc 1.9 mg/dL Normal 09/29/2024 1.6 - 2. 7 HHCCT RBC num Bld Auto 3.63 Mil/uL Below low normal 09/29/2024 4.5 - 6.2 HHCCT Hgb Bld-mCnc 11.3 g/dL Below low normal 09/29/2024 13 - 17.7 HHCCT PMV Bld Auto 9.9 fL Normal 09/29/2024 7.5 - 12.5 HHCCT Platelet num Bld Auto 145.0 Thou/uL Below low normal 09/29/2024 150 - 450 HHCCT MCH RBC Qn Auto 31.1 pg Above high normal 09/29/2024 27 - 31 HHCCT WBC num Bld Auto 9.2 Thou/uL Normal 09/29/2024 4 - 11 HHCCT MCV RBC Auto 95.0 fL Normal 09/29/2024 80 - 100 HHCCT Hct VFr Bld Auto 34.3 % Below low normal 09/29/2024 39 - 54 HHCCT RDW RBC Auto-Rto 13.2 % Normal 09/29/2024 11.5 - 14.5 HHCCT MCHC RBC Auto-mCnc 32.9 g/dL Normal 09/29/2024 30 - 36 HHCCT RBC num Bld Auto 3.6 Mil/uL Below low normal 09/28/2024 4.5 - 6.2 HHCCT Hct VFr Bld Auto 34.2 % Below low normal 09/28/2024 39 - 54 HHCCT RDW RBC Auto-Rto 13.1 % Normal 09/28/2024 11.5 - 14.5 HHCCT WBC num Bld Auto 9.6 Thou/uL Normal 09/28/2024 4 - 11 HHCCT Platelet num Bld Auto 170.0 Thou/uL Normal 09/28/2024 150 - 450 HHCCT MCV RBC Auto 95.0 fL Normal 09/28/2024 80 - 100 HHCCT MCHC RBC Auto-mCnc 33.0 g/dL Normal 09/28/2024 30 - 36 HHCCT Hgb Bld-mCnc 11.3 g/dL Below low normal 09/28/2024 13 - 17.7 HHCCT MCH RBC Qn Auto 31.4 pg Above high normal 09/28/2024 27 - 31 HHCCT PMV Bld Auto 10.2 fL Normal 09/28/2024 7.5 - 12.5 HHCCT Sodium SerPl-sCnc 139.0 mmol/L Normal 09/28/2024 136 - 14 5 HHCCT BUN SerPl-mCnc 18.0 mg/dL Normal 09/28/2024 8 - [address] Glucose SerPl-mCnc 129.0 mg/dL Above high normal 09/28/2024 65 - 99 HHCCT Potassium SerPl-sCnc 3.8 mmol/L Normal 09/28/2024 3.4 - 5 .3 HHCCT CO2 SerPl-sCnc 26.0 mmol/L Normal 09/28/2024 22 - 33 HH CCT Creat SerPl-mCnc 0.9 mg/dL Normal 09/28/2024 0.5 - 1.3 HH CCT Anion Gap Bld-sCnc 9.0 Normal 09/28/2024 7 - 17 HHCCT Chloride SerPl-sCnc 104.0 mmol/L Normal 09/28/2024 98 - 1 07 HHCCT BUN/Creat SerPl 20.0 Ratio Normal 09/28/2024 10 - 25 HH CCT Calcium SerPl-mCnc 9.1 mg/dL Normal 09/28/2024 8.7 - 10.5 HHCCT GFR/BSA.pred SerPlBld UIR-RON-[id number] 85.0 Normal 09/28/2024 59 - HHCCT Magnesium SerPl-mCnc 2.0 mg/dL Normal 09/28/2024 1.6 - 2. 7 HHCCT Phosphate SerPl-mCnc 3.2 mg/dL Normal 09/28/2024 2.7 - 4. 5 HHCCT Comment Specimen clotted. Test not performed. Abnormal 09/28/2024 - HHCCT Magnesium SerPl-mCnc 2.0 mg/dL Normal 09/28/2024 1.6 - 2. 7 HHCCT Potassium SerPl-sCnc 4.1 mmol/L Normal 09/28/2024 3.4 - 5 .3 HHCCT ALT SerPl-cCnc 10.0 U/L Normal 09/28/2024 10 - 55 HHCC T Calcium SerPl-mCnc 8.9 mg/dL Normal 09/28/2024 8.7 - 10.5 HHCCT BUN/Creat SerPl 16.0 Ratio Normal 09/28/2024 10 - 25 HH CCT Bilirub SerPl-mCnc 0.4 mg/dL Normal 09/28/2024 0.2 - 1 HHCCT Albumin SerPl-mCnc 3.7 g/dL Normal 09/28/2024 3.4 - 4.8 HHCCT GFR/BSA.pred SerPlBld [id number] 75.0 Normal 09/28/2024 59 - HHCCT Prot SerPl-mCnc 6.3 g/dL Normal 09/28/2024 6.3 - 8.[address] Creat SerPl-mCnc 1.0 mg/dL Normal 09/28/2024 0.5 - 1.3 HH CCT BUN SerPl-mCnc 16.0 mg/dL Normal 09/28/2024 8 - [address] Sodium SerPl-sCnc 141.0 mmol/L Normal 09/28/2024 136 - 14 5 HHCCT Albumin/Glob SerPl 1.4 Ratio Normal 09/28/2024 1 - 3 HHCCT CO2 SerPl-sCnc 28.0 mmol/L Normal 09/28/2024 22 - 33 HH CCT Anion Gap Bld-sCnc 9.0 Normal 09/28/2024 7 - 17 HHCCT Chloride SerPl-sCnc 104.0 mmol/L Normal 09/28/2024 98 - 1 07 HHCCT Globulin Ser Calc-mCnc 2.6 g/dL Normal 09/28/2024 1.5 - 3.9 HHCCT Glucose SerPl-mCnc 96.0 mg/dL Normal 09/28/2024 65 - 99 HHCCT AST SerPl-cCnc 21.0 U/L Normal 09/28/2024 10 - 55 HHCC T ALP SerPl-cCnc 94.0 U/L Normal 09/28/2024 45 - 128 HHCC T MCHC RBC Auto-mCnc 32.4 g/dL Normal 09/28/2024 30 - 36 HHCCT PMV Bld Auto 10.3 fL Normal 09/28/2024 7.5 - 12.5 HHCCT Platelet num Bld Auto 207.0 Thou/uL Normal 09/28/2024 150 - 450 HHCCT RDW RBC Auto-Rto 13.2 % Normal 09/28/2024 11.5 - 14.5 HHCCT MCV RBC Auto 97.0 fL Normal 09/28/2024 80 - 100 HHCCT Hct VFr Bld Auto 35.2 % Below low normal 09/28/2024 39 - 54 HHCCT RBC num Bld Auto 3.64 Mil/uL Below low normal 09/28/2024 4.5 - 6.2 HHCCT WBC num Bld Auto 6.3 Thou/uL Normal 09/28/2024 4 - 11 HHCCT Hgb Bld-mCnc 11.4 g/dL Below low normal 09/28/2024 13 - 17.7 HHCCT MCH RBC Qn Auto 31.3 pg Above high normal 09/28/2024 27 - 31 HHCCT ISTAT Activated Clotting Time,Celite 307.0 seconds Above high normal 09/28/2024 84 - 139 H HCCT POC Glucose 99.0 mg/dL Normal 09/27/2024 65 - 99 HHCCT BUN SerPl-mCnc 17.0 mg/dL Normal 07/26/2024 8 - [address] GFR/BSA.pred SerPlBld [id number]-WuPCra 85.0 Normal 07/26/2024 59 - HHCCT Creat SerPl-mCnc 0.9 mg/dL Normal 07/26/2024 0.5 - 1.3 HH CCT PMV Bld Auto 10.4 fL Normal 07/26/2024 7.5 - 12.5 HHCCT RDW RBC Auto-Rto 12.9 % Normal 07/26/2024 11.5 - 14.5 HHCCT MCH RBC Qn Auto 31.2 pg Above high normal 07/26/2024 27 - 31 HHCCT MCV RBC Auto 94.0 fL Normal 07/26/2024 80 - 100 HHCCT Hgb Bld-mCnc 13.9 g/dL Normal 07/26/2024 13 - 17.7 HHCCT Platelet num Bld Auto 217.0 Thou/uL Normal 07/26/2024 150 - 450 HHCCT Hct VFr Bld Auto 41.9 % Normal 07/26/2024 39 - 54 HH CCT WBC num Bld Auto 7.9 Thou/uL Normal 07/26/2024 4 - 11 HHCCT RBC num Bld Auto 4.45 Mil/uL Below low normal 07/26/2024 4.5 - 6.2 HHCCT MCHC RBC Auto-mCnc 33.2 g/dL Normal 07/26/2024 30 - 36 HHCCT POC Glucose 99.0 mg/dL Normal 07/26/2024 65 - 99 HHCCT Result Not Detected Normal 05/21/2024 - HHCCT Transferrin SerPl-mCnc 275.0 mg/dL Normal 05/20/2024 200 - 360 HHCCT Prealb SerPl-mCnc 21.0 mg/dL Normal 05/20/2024 20 - 40 HHCCT INR PPP 0.8 Normal 05/20/2024 HHCCT Prothrombin time 9.7 seconds Below low normal 05/20/2024 10 - 13.5 HHCCT Anticoagulant Information not given Normal 05/20/2024 HHCCT aPTT PPP 34.0 seconds Normal 05/20/2024 25 - 36 HHCCT Anticoagulant Information not given Normal 05/20/2024 HHCCT Basophils num Bld Auto 0.04 Thou/uL Normal 05/20/2024 0 - 0.2 HHCCT RDW RBC Auto-Rto 12.5 % Normal 05/20/2024 11.5 - 14.5 HHCCT Hgb Bld-mCnc 12.6 g/dL Below low normal 05/20/2024 13 - 17.7 HHCCT Basophils/leuk NFr Bld Auto 0.6 % Normal 05/20/2024 HHCCT Imm Granulocytes num Bld Auto 0.03 Thou/uL Normal 05/20/2024 0 - 0.1 HHCCT Lymphocytes num Bld Auto 1.12 Thou/uL Below low normal 05/20/2024 1.5 - 4.5 HHCCT Monocytes/leuk NFr Bld Auto 13.8 % Normal 05/20/2024 HHCCT Hct VFr Bld Auto 38.6 % Below low normal 05/20/2024 39 - 54 HHCCT Neutrophils num Bld Auto 4.93 Thou/uL Normal 05/20/2024 2 - 7.5 HHCCT PMV Bld Auto 11.0 fL Normal 05/20/2024 7.5 - 12.5 HHCCT MCV RBC Auto 96.0 fL Normal 05/20/2024 80 - 100 HHCCT Lymphocytes/leuk NFr Bld Auto 15.4 % Normal 05/20/2024 HHCCT Monocytes num Bld Auto 1.0 Thou/uL Normal 05/20/2024 0.2 - 1.5 HHCCT MCHC RBC Auto-mCnc 32.6 g/dL Normal 05/20/2024 30 - 36 HHCCT MCH RBC Qn Auto 31.2 pg Above high normal 05/20/2024 27 - 31 HHCCT Platelet num Bld Auto 221.0 Thou/uL Normal 05/20/2024 150 - 450 HHCCT Eosinophil num Bld Auto 0.15 Thou/uL Normal 05/20/2024 0 - 0.7 HHCCT RBC num Bld Auto 4.04 Mil/uL Below low normal 05/20/2024 4.5 - 6.2 HHCCT WBC num Bld Auto 7.3 Thou/uL Normal 05/20/2024 4 - 11 HHCCT Imm Granulocytes/leuk NFr Bld Auto 0.4 % Normal 05/20/2024 HHCCT Neutrophils/leuk NFr Bld Auto 67.7 % Normal 05/20/2024 HHCCT Eosinophil/leuk NFr Bld Auto 2.1 % Normal 05/20/2024 HHCCT History of Medication Use Medication Directions Dispensed Refills Start Date End Date Stat amLODIPine (NORVASC) 5 MG tablet Take 1 tablet (5 mg total) by mouth daily. 04/04/2025 active amoxicillin (AMOXIL) 500 mg capsule Take 1 capsule (500 mg total) by mouth. 03/11/2025 active amoxicillin (AMOXIL) 500 MG capsule Take 4 capsules (2,000 mg total) by mouth once. Take 30-60 minutes prior to dental work 03/10/2025 03/11/2025 active azithromycin (ZITHROMAX) 250 mg tablet Take 2 tablets (500 mg total) by mouth 2 (two) times a day if needed (Take 2 tablets before your dental procedures) for up to 5 doses. 03/07/2025 active tiZANidine (ZANAFLEX) 4 mg tablet Take 1 tablet (4 mg total) by mouth 1 (one) time each day if needed for muscle spasms. 01/09/2025 active nebivolol (BYSTOLIC) 10 MG tablet TAKE 1 TABLET(5 MG) BY MOUTH DAILY 10/27/2024 active lidocaine (LIDODERM) 5 % patch Apply 1 patch topically 1 (one) time each day. 10/07/2024 active lidocaine (LIDODERM) 5 % patch Place 1 patch on the skin daily. Apply patch and leave on for 12 hours then remove. Patch may remain on skin for 12 hours per day. 10/03/2024 active polyethylene glycol (miraLAx) 17 g packet Take 1 packet (17 g total) by mouth daily. 10/01/2024 11/01/2024 active gabapentin (NEURONTIN) 300 mg capsule Take 2 capsules (600 mg total) by mouth 3 (three) times a day. 09/30/2024 02/06/2025 active atorvastatin (LIPITOR) 80 MG tablet Take 1 tablet (80 mg total) by mouth daily. 07/06/2024 suspended irbesartan (AVAPRO) 300 MG tablet Take 1 tablet (300 mg total) by mouth daily. 07/06/2024 suspended levothyroxine 75 mcg tablet TAKE 1 TABLET(75 MCG) BY MOUTH DAILY 04/25/2024 active sildenafil 100 mg tablet Take 1 tablet (100 mg total) by mouth as needed for erectile dysfunction. 03/08/2024 active gabapentin 300 mg capsule 02/25/2024 active gabapentin (NEURONTIN) 300 MG capsule 02/25/2024 active donepezil 5 mg tablet Take 1 tablet (5 mg total) by mouth every night at bedtime. 02/03/2024 active donepezil (ARICEPT) 5 MG tablet Take 1 tablet (5 mg total) by mouth every night at bedtime. 02/03/2024 active levothyroxine (SYNTHROID, LEVOTHROID) 75 mcg tablet TAKE 1 TABLET(75 MCG) BY MOUTH DAILY 10/23/2023 active ALPRAZolam (Xanax) 0.5 MG tablet Take 1 tablet (0.5 mg total) by mouth as needed for anxiety (Take 30 minutes before MRI). 10/02/2023 10/02/2024 active pregabalin (LYRICA) capsule 50 mg Take 1 capsule (50 mg total) by mouth 2 (two) times a day. 10/02/2023 03/04/2024 aborted pregabalin (LYRICA) 50 MG capsule Take 1 capsule (50 mg total) by mouth 2 times a day. Pt has not yet started medication 10/02/2023 11/12/2023 active alprazolam 0.5 mg tablet Take 1 tablet (0.5 mg total) by mouth as needed for anxiety (Take 30 minutes before MRI). 10/02/2023 active pregabalin (LYRICA) 50 mg capsule Take 1 capsule (50 mg total) by mouth 2 (two) times a day. 10/02/2023 active gabapentin (NEURONTIN) 300 MG capsule Take 1 capsule (300 mg total) by mouth 3 (three) times a day. 06/03/2023 11/12/2023 active predniSONE (DELTASONE) 20 MG tablet Take 1 tablet (20 mg total) by mouth daily. With food. 05/20/2023 10/08/2023 active tiZANidine (Zanaflex) 4 MG tablet Take 1 tablet (4 mg total) by mouth every 8 (eight) hours as needed. 04/06/2023 04/06/2024 aborted tiZANidine (ZANAFLEX) 4 mg tablet Take 1 tablet (4 mg total) by mouth every 8 (eight) hours as needed. 04/06/2023 active irbesartan-hydroCHLO ROthiazide (AVALIDE) 300-12.5 MG per tablet TAKE 1 TABLET BY MOUTH DAILY 01/15/2023 07/06/2024 active amLODIPine (NORVASC) 5 MG tablet TAKE 1 TABLET(5 MG) BY MOUTH DAILY 2022 04/27/2024 active nebivoloL (BYSTOLIC) 5 mg tablet Take 1 tablet (5 mg total) by mouth daily. 09/10/2021 11/14/2024 aborted nebivolol 5 mg tablet Take 1 tablet (5 mg total) by mouth daily. 09/10/2021 active nebivolol (BYSTOLIC) 5 MG tablet Take 1 tablet (5 mg total) by mouth daily. 09/10/2021 active Kenalog 10 mg/mL suspension for injection Inject 1 mL (10 mg total) into the skin. 07/02/2021 12/18/2022 completed atorvastatin 40 mg tablet TAKE 1 TABLET(40 MG) BY MOUTH DAILY 10/31/2020 active irbesartan 150 mg-hydrochlorothiazi de 12.5 mg tablet TAKE 1 TABLET BY MOUTH DAILY 10/31/2020 active atorvastatin (LIPITOR) 40 mg tablet TAKE 1 TABLET(40 MG) BY MOUTH DAILY 10/31/2020 active atorvastatin (LIPITOR) tablet 40 mg TAKE 1 TABLET(40 MG) BY MOUTH DAILY 10/31/2020 active irbesartan-hydroCHLO ROthiazide (AVALIDE) 150-12.5 mg per tablet TAKE 1 TABLET BY MOUTH DAILY 10/31/2020 active acetaminophen (TYLENOL) 325 MG tablet Take 2 tablets (650 mg total) by mouth as needed. 09/15/2020 active amlodipine 5 mg tablet TAKE 1 TABLET(5 MG) BY MOUTH DAILY 05/07/2020 active amLODIPine (NORVASC) 5 mg tablet TAKE 1 TABLET(5 MG) BY MOUTH DAILY 05/07/2020 active ascorbic acid (VITAMIN C) 1000 MG tablet Take 1 tablet (1,000 mg total) by mouth every morning. 03/15/2024 active DAILY MULTIPLE VITAMINS PO Take 1 tablet by mouth daily. 02/03/2024 active ascorbic acid (vitamin C) 1,000 mg tablet Take 1 tablet (1,000 mg total) by mouth every evening. active aspirin 81 mg tablet,delayed release Take 1 tablet (81 mg total) by mouth every evening. active ascorbic acid (VITAMIN C) 1,000 mg tablet Take 1 tablet (1,000 mg total) by mouth every evening. active aspirin 81 mg EC tablet Take 1 tablet (81 mg total) by mouth every evening. active calcium carbonate-vitamin D (CALTRATE+D) 600 mg-10 mcg tablet Take 1 tablet by mouth 2 (two) times a day with meals. active memantine (NAMENDA) 10 mg tablet Take 1 tablet (10 mg total) by mouth 2 (two) times a day. active multivit-min/ferrous fumarate (MULTI VITAMIN ORAL) Take 1 tablet by mouth daily. active nebivoloL (BYSTOLIC) 10 mg tablet Take 1 tablet (10 mg total) by mouth 1 (one) time each day. active Problems Problem Status Onset Date Problem Type Date of Resolution Source RBBB active ProblemAct CT_THSFRAN Elevated PSA active ProblemAct CT_THSFRAN Nonrheumatic aortic valve stenosis active ProblemAct CT_THSFRAN Coronary artery disease involving [place] coronary artery of [place] heart without angina pectoris active ProblemAct CT_THSFRAN Need for prophylactic vaccination against Streptococcus pneumoniae (pneumococcus) active EncounterDiagnosisAct CTTH NEMG Frontotemporal dementia active ProblemAct CTTHNEMG Obesity (BMI 30-39.9) active ProblemAct CT_THSFRAN Carotid stenosis, asymptomatic, left active ProblemAct CT_THSFRAN Acute bronchitis due to other specified organisms active ProblemAct CT_THSFRAN Frontotemporal dementia (CMS/HCC V24, CMS/[facility] V28) active ProblemAct CT_THSFRAN Disease of thyroid gland active ProblemAct CTTHNEMG High cholesterol active ProblemAct CT_THSFRAN High cholesterol active ProblemAct CT THNEMG Coronary artery disease involving [place] coronary artery of [place] heart without angina pectoris active ProblemAct CTTHNEMG Hypothyroid active ProblemAct CT_THSFRAN Disease of thyroid gland active 2023-11 ProblemAct CT_THSFRAN CHB (complete heart block) (CMS/HCC V24, CMS/HCC V28) active ProblemAct CT_THSFRAN Hypertension active ProblemAct CT_THSFRAN Aphagia active EncounterDiagnosisAct CTTHNEMG Mixed hyperlipidemia active EncounterDiagnosisA ct CTTHNEMG Chronic heart failure with preserved ejection fraction (HFpEF) (CMS/HCC V24, CMS/HCC V28) active ProblemAct CT_THSFRAN Chronic heart failure with preserved ejection fraction (HFpEF) active ProblemAct [facility] Syncope and collapse active ProblemAct [facility]CT Frontal lobe dementia active ProblemAct [facility] Non-rheumatic mitral regurgitation active ProblemAct [facility] Hearing loss active ProblemAct [facility] Nonrheumatic mitral valve stenosis active ProblemAct [facility]CT Normocytic anemia active ProblemAct H HC[facility] S/P TAVR (transcatheter aortic valve replacement) active ProblemAct [facility] Acquired hypothyroidism active ProblemAct [facility] Hypertension active ProblemAct [facility] Lumbar radiculopathy active ProblemAct [facility]CT Coronary artery disease involving [place] coronary artery of [place] heart without angina pectoris active ProblemAct [facility] Mixed hyperlipidemia active ProblemAct H[facility] Pacemaker active EncounterDiagnosisAct HHCCT Bifascicular block active ProblemAct H[facility]CT Anxiety active ProblemAct H[facility]CT Hx of CABG active ProblemAct H[facility]CT BPH (benign prostatic hyperplasia) active ProblemAct [facility]CT Bilateral carotid artery disease active ProblemAct H[facility]CT Hypothyroidism active ProblemAct ENS_PHCCT Disorder of carotid artery active ProblemAct ENS_PHCCT Coronary arteriosclerosis active ProblemAct ENS_PHCCT Hypertensive disorder active ProblemAct ENS_PHCCT Acute infective bronchitis active ProblemAct ENS_PHCCT Left carotid artery stenosis active ProblemAct ENS_PHCCT History of coronary artery bypass grafting active ProblemAct ENS_PHCCT Aortic stenosis, non-rheumatic active ProblemAct ENS_PHCCT Disorder of thyroid gland active ProblemAct ENS_PHCCT Non-rheumatic mitral regurgitation active ProblemAct ENS_PHCCT Hypercholesterolemia active ProblemAct ENS_PHCCT Right bundle branch block active ProblemAct ENS_PHCCT Syncope and collapse active ProblemAct ENS_PHCCT Benign prostatic hyperplasia with outflow obstruction active ProblemAct ENS_PHCCT Body mass index 30+ - obesity active ProblemAct ENS_PHCCT Acquired hypothyroidism active ProblemAct ENS_PHCCT S/P TAVR (transcatheter aortic valve replacement) active ProblemAct [facility]CT Nonrheumatic mitral valve stenosis active ProblemAct [facility] Bilateral carotid artery disease active ProblemAct H[facility]CT Normocytic anemia active ProblemAct H HCCT Coronary artery disease involving [place] coronary artery of [place] heart without angina pectoris active ProblemAct H[facility]CT Chronic heart failure with preserved ejection fraction (HFpEF) active ProblemAct [facility] Anxiety active ProblemAct [facility] Mixed hyperlipidemia active ProblemAct [facility]CT Bifascicular block active ProblemAct [facility] Non-rheumatic mitral regurgitation active ProblemAct [facility] Hx of CABG active ProblemAct H[facility]CT Syncope and collapse active ProblemAct [facility] BPH (benign prostatic hyperplasia) active ProblemAct [facility] Hypertension active ProblemAct [facility] Frontal lobe dementia active ProblemAct H[facility] Hearing loss active ProblemAct H[facility] Acquired hypothyroidism active ProblemAct [facility] Immunizations Vaccine Date Source Lot Number Status Pneumococcal Conjugate PCV20 07/05/2024 CTTHNEMG [id number] completed Influenza Quadravalent, 0.5m l (Fluad) 65yo and older 08/24/2023 CT_THSFRAN completed Influenza Quadravalent, 0.5m l (Fluzone High-dose) 65yo and older 09/01/2022 CT_THSFRAN [id number] comple jeanne SARS-COV-2 (COVID-19) vaccin e, mRNA, spike protein, LNP, bivalent booster, preservative free, 30 mcg/0.3 mL dose, debi-sucrose formulation 07/31/2022 [id number] ed Pfizer SARS-CoV-2 COVID-19, mRNA, LNP-S, preservative free 07/31/2022 CT_STEPHANIE completed Influenza Quadravalent, 0.5m l (Fluad) 65yo and older 08/24/2021 CT_SFRAN [id number] completed SARS-COV-2 (COVID-19) vaccin e, mRNA, spike protein, LNP, preservative free, 30 mcg/0.3mL dose 07/23/2021 ENS_[facility] [id number] completed SARS-COV-2 (COVID-19) vaccin e, mRNA, spike protein, LNP, preservative free, 30 mcg/0.3mL dose 11/28/2020 ENS_[facility] [id number] completed SARS-COV-2 (COVID-19) vaccin e, mRNA, spike protein, LNP, preservative free, 30 mcg/0.3mL dose 11/07/2020 [facility] [id number] completed Influenza Quadravalent, 0.5m l (Fluzone High-dose) 65yo and older 07/27/2020 CT_CorinaFRKYRIE [id number] comple jeanne Pneumococcal conjugate 13 va lent (Prevnar 13, PCV13) 2mo and older 08/16/2019 CT_SFRKYRIE [id number] complet ed Influenza trivalent, 0.5mL ( Fluad) 65yo and older 08/03/2019 CT_SFRKYRIE [id number] completed Zoster recombinant (Shingrix ) 19yo and older 04/06/2019 CT_SFRKYRIE completed Zoster recombinant (Shingrix ) 19yo and older 01/28/2019 CT_SFRKYRIE [id number] completed Influenza trivalent, 0.5mL, preservative free (Fluarix; FluLaval; Fluzone) ages 6mo and older (Afluria) 3 years and older 11/12/2017 CT_CorinaFRKYRIE [id number] completed Encounters Encounter Type Encounter Reason Primary Diagnosis Location Date Ambulatory OMT [facility] 5 Ambulatory Presence of cardiac pacemaker Presence of cardiac pacemaker [facility] 5 Ambulatory [facility] 5 Ambulatory OMT OMT [facility] 5 Ambulatory [facility] 5 Ambulatory Medicare Annual Wellness Visit Subsequent Encounter for general adult medical examination without abnormal findings [facility] 5 Ambulatory Appointment Appointment [facility] 5 Ambulatory Follow-up Follow-up [facility] 5 Ambulatory Presence of cardiac pacemaker Presence of cardiac pacemaker [facility] 5 Ambulatory Follow-up Follow-up [facility] 5 Ambulatory Follow-up Follow-up [facility] 5 Ambulatory Presence of prosthet ic heart valve Presence of prosthetic heart valve [facility] 5 Ambulatory Follow-up Lumbago with sci atica, right side [facility] 5 Ambulatory Presence of cardiac pacemaker Presence of cardiac pacemaker [facility] 5 Ambulatory Presence of cardiac pacemaker Presence of cardiac pacemaker [facility] 5 Ambulatory [facility] 5 Inpatient Atrioventricular block, complete Atrioventricular block, complete [facility] 4 Ambulatory 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 [facility] 4 Ambulatory 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 [facility] 4 Ambulatory [facility] 4 Ambulatory 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 [facility] 4 Ambulatory 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 [facility] 4 Ambulatory 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 [facility] 4 Ambulatory 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 [facility] 4 Ambulatory 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 [facility] 4 Ambulatory Encounter for preprocedural cardiovascular examination Encounter for preprocedural cardiovascular examination [facility] 4 Ambulatory Radiculopathy, lumba r region Radiculopathy, lumbar region [employer] 4 Ambulatory 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 [facility] 4 Ambulatory [facility] 4 Ambulatory Encounter for other preprocedural examination Encounter for other preprocedural examination [employer] 4 Ambulatory Radiculopathy, lumba r region Radiculopathy, lumbar region [employer] [facility] 4 Ambulatory Occlusion and stenos is of bilateral carotid arteries Occlusion and stenosis of bilateral carotid arteries [employer] [facility] 4 Ambulatory Unspecified right bundle-branch block Unspecified right bundle-branch block [employer] [facility] 4 Ambulatory Radiculopathy, lumba r region Radiculopathy, lumbar region [employer] [facility] 4 Ambulatory Radiculopathy, lumba r region Radiculopathy, lumbar region [facility] 4 Ambulatory Low Back Pain Low Back Pain [employer] [facility] 4 Ambulatory 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 [employer] [facility] 4 Ambulatory Lumbago with sciatic a, right side Lumbago with sciatica, right side [employer] [facility] 4 Ambulatory Lumbago with sciatic a, right side Lumbago with sciatica, right side [employer] 4 Ambulatory Lumbago with sciatic a, right side Lumbago with sciatica, right side [employer] [facility] 4 Ambulatory Radiculopathy, lumba r region Radiculopathy, lumbar region [employer] [facility] 4 Ambulatory Lumbago with sciatic a, right side Lumbago with sciatica, right side [employer] [facility] 4 Ambulatory Lumbago with sciatic a, right side Lumbago with sciatica, right side [employer] [facility] 4 Ambulatory Lumbago with sciatic a, right side Lumbago with sciatica, right side [place] [employer] 4 Ambulatory Lumbago with sciatic a, right side Lumbago with sciatica, right side [place] [employer] 4 Ambulatory Lumbago with sciatic a, right side Lumbago with sciatica, right side [place] [employer] 4 Ambulatory Lumbago with sciatic a, right side Lumbago with sciatica, right side [place] [facility] [employer] [facility] 4 Ambulatory Pain in right knee Pain in right knee [facility] [employer] 4 Ambulatory Radiculopathy, lumba r region Radiculopathy, lumbar region [place] [employer] 4 Ambulatory Lumbago with sciatic a, right side Lumbago with sciatica, right side [place] [employer] 4 Ambulatory Lumbago with sciatic a, right side Lumbago with sciatica, right side [place] [employer] 4 Ambulatory Lumbago with sciatic a, right side Lumbago with sciatica, right side [place] [employer] 4 Ambulatory Lumbago with sciatic a, right side Lumbago with sciatica, right side [place] [facility] [employer] 4 Ambulatory Lumbago with sciatic a, right side Lumbago with sciatica, right side [place] [facility] [employer] [facility] 4 Ambulatory 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 [place] [employer] [facility] 3 Ambulatory Lumbago with sciatic a, right side Lumbago with sciatica, right side [facility] 3 Ambulatory Radiculopathy, lumba r region Radiculopathy, lumbar region [facility] 3 Ambulatory Radiculopathy, lumba r region Radiculopathy, lumbar region [facility] 3 Ambulatory Lumbago with sciatic a, right side Lumbago with sciatica, right side [facility] 3 Ambulatory Radiculopathy, lumba r region Radiculopathy, lumbar region [facility] 3 Ambulatory [facility] 3 Ambulatory [facility] 3 Ambulatory [facility] 3 Ambulatory [facility] 3 Ambulatory [facility] 3 Ambulatory Radiculopathy, lumba r region Radiculopathy, lumbar region [place] [facility] [employer] 3 Ambulatory Lumbago with sciatic a, right side Lumbago with sciatica, right side [facility] 3 Ambulatory [facility] 3 Ambulatory [facility] 3 Ambulatory [place] [facility] [employer] [facility] 3 Ambulatory Lumbago with sciatic a, right side Lumbago with sciatica, right side [facility] 3 Ambulatory Lumbago with sciatic a, right side Lumbago with sciatica, right side [place] [facility] [employer] [facility] 3 Ambulatory Lumbago with sciatic a, right side Lumbago with sciatica, right side [place] [facility] [employer] [facility] 3 Ambulatory Lumbago with sciatic a, right side Lumbago with sciatica, right side [place] [facility] 3 Ambulatory Pain in right knee Pain in right knee [facility] 3 Ambulatory Lumbago with sciatic a, right side Lumbago with sciatica, right side [place] [facility] [employer] [facility] 3 Ambulatory Lumbago with sciatic a, right side Lumbago with sciatica, right side [place] [facility] 3 Ambulatory Lumbago with sciatic a, right side Lumbago with sciatica, right side [place] [facility] [employer] [facility] 3 Ambulatory 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 [facility] 3 Ambulatory Radiculopathy, lumba r region Radiculopathy, lumbar region [facility] 3 Ambulatory [facility] 3 Ambulatory [facility] 3 Ambulatory Lumbago with sci atica, right side [facility] 3 Ambulatory [facility] 3 Ambulatory [facility] 3 Ambulatory Radiculopathy, l umbar region [facility] 3 Ambulatory [facility] 3 Ambulatory [facility] 3 Ambulatory Lumbago with sci atica, right side [facility] 3 Ambulatory [facility] 3 Ambulatory [facility] 3 Ambulatory [facility] 3 Ambulatory [facility] 3 Ambulatory Lumbago with sci atica, right side [facility] 3 Ambulatory 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 [facility] 3 Ambulatory [facility] 3 Ambulatory [facility] 3 Ambulatory Atherosclerotic heart disease of [place] coronary artery without angina pectoris [facility] 3 Ambulatory Atherosclerotic heart disease of [place] coronary artery without angina pectoris [facility] 3 Ambulatory Syncope and collapse [employer] 3 Ambulatory Syncope and collapse [employer] 3 Ambulatory Atherosclerotic heart disease of [place] coronary artery without angina pectoris [facility] 2 Ambulatory Atherosclerotic heart disease of [place] coronary artery without angina pectoris [facility] 2 Ambulatory Nonrheumatic aor tic (valve) stenosis [facility] 2 Ambulatory Atherosclerotic heart disease of [place] coronary artery without angina pectoris [facility] 1 Care Team Organization Name Specialty Phone Email Start Date End Da te [facility] Primary Care 04/18/2025 [employer] [facility] [place] CCDA 025 04/27/2025 [facility] [place] ADT 03/24/20 25 04/26/2025 [facility], 03/14/2025 [facility] - [place] CCDA 025 03/15/2025 [facility] Primary Care 12/21/2024 [facility] Primary Care 11/14/2024 [facility] [place], [facility] 05/16/2024 [employer] 12/15/2023 03/13/2024 [facility] Primary Care 09/23/2023 05/30/20 24 [facility] 08/13/2023 024 [facility] [place] ADT 05/22/20 23 03/24/[address] [facility] - [place] CCDA 023 03/11/2025 [facility] SALLIE NAYLOR Primary Care 04/02/2023 [facility] SALLIE NAYLOR Primary Care 01/12/2023 [facility] RUBEN SPENCE Primary Care 03/20/2022 [facility] Primary Care 11/12/2021 03/20/2022
--- OUTSIDE RECORDS SUMMARY | 2025-05-04 12:24 | XMS_ITS | Encounter Summary ---
Author Organization [facility] Address [address] [place] [address] Care Team Providers Care Dining Room Helper Name Role Phone Jen Celis MD Unavailable Unavailable Josh Parra DO Primary Care Provider [phone] Paul Martin MD Unavailable [phone] Nick Irizarry APRN Unavailable [phone] Keny Navarro MD Unavailable Unavaila Angie Smith MD Unavailable [phone] Cristin Guerrero Unavailable [phone] Nick Irizarry ENGINE BOSS Unavailable [phone] Pradip Cortez MD Unavailable [phone] Encounter Details Date Type Department Care Team (Late st Contact Info) Description 10/07/2024 Scanned Document [facility] at Home [address] [facility] [address] [place] [address] Provider, Generic Social History Tobacco Use Types Packs/Day Years Used Date Smoking Tobacco: Former Cigarettes 1 07 12 962 - 1971 Smokeless Tobacco: Never Alcohol Use Standard Drinks/Week Comments Not Currently 0 (1 standard drink = 0.6 oz pur e alcohol) Once every couple of weeks [facility] Utilities Answer Date Recorded In the past 12 months has [employer] electric, gas, oil, or water company threatened to shut off services in your home? No 09/28/2024 AUDIT-C Answer Date Recorded Q1: How often do you have a drink containing alc ohol? Monthly or less 09/06/2024 Q2: How many drinks containi ng alcohol do you have on a typical day when you are drinking? 1 or 2 09/06/2024 Q3: How often do you have si x or more drinks on one occasion? Never 09/06/2024 Overall Financial Resource Strain (CARDIA) Answe r Date Recorded How hard is it for you to pa y for the very basics like food, housing, medical care, and heating? Not very hard 09/28/2024 PHQ-2 Answer Date Recorded PHQ-2 Total Score 0 09/27/2024 Hunger Vital Sign Answer Date Recorded Within the past 12 months, y ou worried that your food would run out before you got the money to buy more. Never true 09/28/20 24 Within the past 12 months, t he food you bought just didn't last and you didn't have money to get more. Never true 09/28/2024 PRAPARE - Transportation Answer Date Re corded In the past 12 months, has l ack of transportation kept you from medical appointments or from getting medications? No 09/11 In the past 12 months, has l ack of transportation kept you from meetings, work, or from getting things needed for daily living? No 09/28/2024 Housing Stability Vital Sign Answer Frantz e Recorded In the last 12 months, was t here a time when you were not able to pay the mortgage or rent on time? No 09/28/2024 In the past 12 months, how m any times have you moved where you were living? 1 09/28/2024 At any time in the past [facility], were you homeless or living in a [facility] (including now)? No 09/28/2024 Sex and Gender Information Value Date Recorded Sex Assigned at Male 10/30/2022 7:31 AM EST Legal Sex Male 3:21 PM EDT Gender Identity Male 10/30/2022 7:31 AM EST Sexual Orientation Heterosexual (straight) 10/30 7:31 AM EST Occupation Industry Job Start Date Job End Date Retired Not on file Not on file Not on file documented as of this encounter Plan of Treatment Upcoming Encounters Date Type Department Care Team (Late st Contact Info) Description 05/04/2025 4:00 PM EDT Office Visit [facility] [address] [place] [address] Aminta Velez MD [address] [place] [address] [address] [place], [place] [id number] 07/18/2025 8:40 AM EDT Appointment [facility] Heart Vascular [facility] - Electrophysiology [address] [facility] [address] [place] [id number] Sandra Barron V., ENGINE BOSS [address] [facility] [address] [place], [place] [id number] 10/13/2025 8:40 AM EST Appointment [facility] [address] [facility] [address] [place] [address] Sandra Barron V., ENGINE BOSS [address] [facility] [address] [place], [place] [id number] documented as of this encounter Visit Diagnoses Not on filedocumented in this encounter Care Teams Dining Room Helper Relationship Specialty Start Date End Date AidaJosh PCP - General 01/15/23 Jen Celis MD Primary Contact Acid Plant Operator Cardiovascular Disease 10/30/22 Paul Martin MD [address] [place] [address] Physician Surgery, Orthopedic 02/03/24 Nick Irizarry, ENGINE BOSS [address] [place] [address] Nurse Practitioner Surgery, Orthopedic 02/03/24 Keny Navarro MD [address] [place] [address] Neurology 05/13/24 Angie Copeland MD [address] [place] [address] Consulting Provider Urology 05/16/24 Cristin Guerrero PA [address] [place] [id number] Physician Food Products Tester Cardiovascular Disease 05/16/24 Nick Irizarry APRN [address] [place] [address] Nurse Practitioner Surgery, Orthopedic 05/16/24 Pradip Cortez MD [address] [place] [id number] Surgery, Cardiac 08/11/24 documented as of this encounter
== END 2025-05-04 12:29 | disposition home or self-care (01) ==
LOC: HO.HSM 11:31
PROVIDERS: PCP Family Medicine; Visit Provider Registered Nurse
DX: G31.09 Other frontotemporal neurocognitive disorder (principal); F02.80 Dementia in other diseases classified elsewhere, unspecified severity, without behavioral disturbance, psychotic disturbance, mood disturbance, and anxiety
CPT/HCPCS: 99214